=== PATIENT | male | born 1970 | race African-American/Black ===

== ENCOUNTER 2020-07-26 02:54 | Inpatient (IN) | payer OTHER ==
[~2020-07-26] VITALS: Ht 175.3 cm; Wt 86.2 kg
[2020-07-26] MEDS ORDERED: KETOROLAC 30MG/ML VIAL IV STA (03:52)
[2020-07-26] MEDS ORDERED: ONDANSETRON HCL 4MG/2ML INJ IV STA (03:52)
[2020-07-26] MEDS ORDERED: SODIUM CHLORIDE 0.9% 1,000 ML IV ONE (03:52)
[2020-07-26 04:23] LABS: HEMATOCRIT. 42.3 % (42.0-52.0); HEMOGLOBIN. 14.4 g/dL (14.0-18.0); MEAN CORPUSCULAR HEMOGLOBIN 29.3 pg (28.0-32.0); MEAN CORPUSCULAR VOLUME 85.9 fL (80.0-94.0); MEAN PLATELET VOLUME 10.4 fl (7.4-10.4); PLATELET 278 x1000/uL (130-400); RED BLOOD CELL COUNT 4.93 mill/uL (4.7-6.1); RED CELL DISTRIBUTION WIDTH 13.3 % (11.6-14.6)
[2020-07-26 04:31] LABS: CHLORIDE 106 mEq/L (98-107)
[2020-07-26 04:33] LABS: CLARITY URINE CLEAR (CLEAR); COLOR URINE YELLOW (YELLOW); KETONES URINE 1+ (NEGATIVE); LEUKOCYTE ESTERASE URINE NEGATIVE (NEGATIVE); NITRITE URINE NEGATIVE (NEGATIVE); OCCULT BLOOD URINE 2+ (NEGATIVE); PROTEIN URINE TRACE (NEGATIVE)
[2020-07-26 05:19] LABS: PLATELET ESTIMATE NORMAL
[2020-07-26 12:00] VITALS: BP 114/69
[2020-07-26 12:10] VITALS: BP 114/69
[2020-07-26] MEDS ORDERED: KETOROLAC 30MG/ML VIAL IV PRN (12:45)
[2020-07-26] MEDS ORDERED: TAMSULOSIN HCL 0.4MG SR CAPSULE PO SCH (13:25)
[2020-07-26] MEDS ORDERED: SODIUM CHLORIDE 0.9% 1,000 ML IV SCH (13:26)
[2020-07-26 17:02] VITALS: BP 111/74
[2020-07-30] MEDS ORDERED: TAMS-11 PO (13:17)
[2020-07-30] MEDS ORDERED: IBUP-2029 MT (13:17)
== END 2020-07-26 17:16 | disposition home or self-care (01) | DRG 683 ==
LOC: ER 02:54 → 6EST 05:47 → ENRESERV 11:27 → EDBEDREQTM 11:33
PROVIDERS: ADMIT Internal Medicine; ATTEND Internal Medicine
DX: N17.9 Acute kidney failure, unspecified (principal); R65.10 Systemic inflammatory response syndrome (SIRS) of non-infectious origin without acute organ dysfunction; N13.2 Hydronephrosis with renal and ureteral calculous obstruction; Z87.442 Personal history of urinary calculi; Z79.899 Other long term (current) drug therapy
CPT/HCPCS: 36415; 74176; 80053; 81003; 85025; 93005; 99285; J1885; J2405; J7030

== ENCOUNTER 2020-12-24 16:27 | Emergency (ER) | payer OTHER ==
[~2020-12-24] VITALS: Ht 175.3 cm; Wt 77.0 kg
[~2020-12-24 16:27] MED LIST: IBUP-2029 MT; TAMS-11 PO
[2020-12-24] MEDS ORDERED: LORAZEPAM 2MG/ML CPJ IM STA (17:42)
[2020-12-24] MEDS ORDERED: SODIUM CHLORIDE 0.9% 1,000 ML IV ONE (17:45)
[2020-12-24] MEDS ORDERED: HALOPERIDOL LACTATE 5MG/ML VIAL IM ONE (17:45)
[2020-12-24 18:02] LABS: BASOPHILS % 0.4 % (0.0-2.0); EOSINOPHILS % 0.2 % (0.0-5.0); HEMATOCRIT. 44.2 % (42.0-52.0); HEMOGLOBIN. 14.9 g/dL (14.0-18.0); LYMPHOCYTES % 12.3 % (20.0-50.0); MEAN CORPUSCULAR HEMOGLOBIN 28.6 pg (28.0-32.0); MEAN CORPUSCULAR VOLUME 84.8 fL (80.0-94.0); MEAN PLATELET VOLUME 10.2 fl (7.4-10.4); NEUTROPHILS % 77.1 % (40.0-76.0); PLATELET 274 x1000/uL (130-400); RED BLOOD CELL COUNT 5.22 mill/uL (4.7-6.1); RED CELL DISTRIBUTION WIDTH 13.3 % (11.6-14.6)
[2020-12-24 18:13] LABS: CHLORIDE 102 mEq/L (98-107)
[2020-12-24 18:17] LABS: ETHANOL BLOOD < 10 mg/dL
[2020-12-24 18:33] LABS: CREATINE KINASE 2040 IU/L (39-308)
[2020-12-24 23:00] VITALS: BP 110/68
== END 2020-12-24 23:06 | disposition home or self-care (01) ==
LOC: ER 16:27
DX: R41.82 Altered mental status, unspecified (principal); R46.2 Strange and inexplicable behavior; I49.9 Cardiac arrhythmia, unspecified
CPT/HCPCS: 36415; 70450; 71045; 80053; 80307; 80320; 80329; 82140; 82550; 84443; 84484; 85025; 93005; 96360; 96361; 96372; 99285; J1630; J2060; J7030; G0480